=== PATIENT | female | born 1990 | race Caucasian/White ===

== ENCOUNTER 2020-08-01 08:25 | Day surgery (SDC) | payer OTHER ==
[2020-08-01 08:32] LABS: Specific Gravity 1.025 (1.005-1.030)
[2020-08-01] MEDS ORDERED: SCOPOLAMINE HYDROBROMIDE PATCH TD ONE (08:43)
[2020-08-01] MEDS ORDERED: Ringers Lactate 1,000 ML IV ONE ×4 (08:43→14:22)
[2020-08-01] MEDS ORDERED: CEFAZOLIN/SWI 1gm 1 GM/10 ML SYR ONE (08:44)
[2020-08-01] MEDS ORDERED: propofoL 200 MG/20 ML VIAL IV ONE (09:09)
[2020-08-01] MEDS ORDERED: GLYCOPYRROLATE 0.2 MG/ML SYR ONE ×2 (09:11)
[2020-08-01] MEDS ORDERED: MIDAZOLAM HCL 2 MG/2 ML INJ ONE (09:11)
[2020-08-01] MEDS ORDERED: LIDOCAINE 2% MPF 5 ML VIAL ONE (09:11)
[2020-08-01] MEDS ORDERED: ROCURONIUM 50 MG/5 ML VIAL IV ONE ×2 (09:11→10:54)
[2020-08-01] MEDS ORDERED: FENTANYL CITR 250 MCG/5 ML ONE (09:11)
[2020-08-01] MEDS ORDERED: ONDANSETRON 4 MG/2 ML VIAL ONE ×3 (09:12→16:16)
[2020-08-01] MEDS ORDERED: KETOROLAC 30 MG/ML INJ ONE (09:12)
[2020-08-01] MEDS ORDERED: dexAMETHasone 10 MG/ML VIAL ONE (09:12)
[2020-08-01] MEDS ORDERED: LIDOCAINE 1% W/EPI 1:100,000 MDV 20 ML VIAL ONE (09:19)
[2020-08-01] MEDS ORDERED: NS 0.9% VIAL 40 ML ONE (09:19)
[2020-08-01] MEDS ORDERED: GENTAMICIN SULF 80 MG/2ML INJ ONE (09:19)
[2020-08-01] MEDS ORDERED: CEFAZOLIN SODIUM 1 GM/VIAL ONE (09:19)
[2020-08-01] MEDS ORDERED: BACITRACIN 50000 UNIT VIAL ONE (09:19)
[2020-08-01] MEDS ORDERED: Mastisol Adhesive Liq ONE (09:19)
[2020-08-01] MEDS ORDERED: FENTANYL CITR 100 MCG/2 ML ONE (10:54)
[2020-08-01] MEDS ORDERED: OXYMETAZOLINE HCL 0.05% 15ML NAS ONE (11:17)
[2020-08-01] MEDS ORDERED: MORPHINE 10 MG/ML VIAL ONE (13:12)
[2020-08-01] MEDS ORDERED: HYDROMORPHONE HCL 1 MG/ML INJ ONE (14:43)
[2020-08-01 15:21] VITALS: TEMP 98
[2020-08-01 16:14] VITALS: O2SAT 98
[2020-08-01] MEDS ORDERED: CODEINE 30MG/APAP 300MG TAB ONE (16:52)
[2020-08-01 17:22] VITALS: BP 97/55
--- NOTE | 2020-08-01 21:56 | OP ---
Surgeon: Nguyễn Liu MD Preoperative Diagnosis: Breast descent after implants. Postoperative Diagnosis: Breast descent after implants. Procedure Performed: Explantation and lift. Anesthesia: General. Description Of Procedure: After satisfactory induction of general anesthesia, the chest was prepped with DuraPrep, dry sterile drapes applied in the usual manner. A 45 mm template was used on right an d left areolas and then transverse curvilinear incisions were made. The intervening skin was de-epit helialized with dermabrader and EpiCut and a transverse and lateral incision made with electrocautery . Flap was elevated and thinned to 1.5 cm, elevated towards the sternum, clavicle, anterior axillary line. Then, an inferior incision was made to full-thickness skin. Then, the tissue was displaced m edially and the retropectoral dissection was performed with electrocautery. The implants were remove d with 300 cc smooth silicone, nonruptured with no significant capsule and disease. The wound was ir rigated with antibiotic solution and then deep breast tissue formed into a cone. Straps were elevate d at 12 o'clock, 1:30, and 3 o'clock position. The straps were then woven in and out of pectoralis m uscle back to base of cone, back to pectoral muscle, back to base of cone, tied themselves with 2-0 P DS suture. This was done for 12 o'clock, 1:30, and 3 o'clock strap was sewn over the sternum at 3 o' clock position with 2-0 Ethibond. Mirror image was done on the opposite side. The patient was sat u p after wounds were closed with lu and dog ears marked out laterally, and then placed supine wit h dog ears incised and then the wounds were irrigated with antibiotic solution. A 3-0 Monocryl sutur e was used to tack Vinay fascia at the 6 o'clock position on both breast and then the wound was clos ed after 10 COLLINS was brought out of axilla and sewn in place with 2-0 silk, closed with a 3-0 Vicryl navarrete bcu and 3-0 PDS running subcuticular tied from medial to lateral and lateral to medial, and tied in t he vertical midline of the breast. Both breasts were done and then the patient was sat up. Site for new nipple-areolar complex was marked out. The patient returned supine. The tissue was cored out w ith 45 mm template. Nipple areolar complex delivered and sewn with interrupted 4-0 PDS followed by 4 -0 PDS running subcuticular. Dressings consisted of tincture of benzoin, Steri-Strips, 5 x 5s, fluff s, and Dominick wrap. The patient tolerated the procedure well and returned to Recovery. NANI/YOVANI Voice ID: [id number] Report ID: [id number]
== END 2020-08-01 17:45 | disposition home or self-care (01) ==
LOC: OR 08:25
PROVIDERS: ATTEND Specialist
PROC: 0HPU0JZ Removal of Synthetic Substitute from Left Breast, Open Approach (ICD-10-PCS; 2020-08-01)
PROC: 0HPT0JZ Removal of Synthetic Substitute from Right Breast, Open Approach (ICD-10-PCS; 2020-08-01)
PROC: 0HSV0ZZ Reposition Bilateral Breast, Open Approach (ICD-10-PCS; principal; 2020-08-01 09:00)
DX: N64.81 Ptosis of breast (principal); Z45.812 Encounter for adjustment or removal of left breast implant; Z45.811 Encounter for adjustment or removal of right breast implant
CPT/HCPCS: 19316; 19371; 81025; 88305; J2704; J1580; J2250; J3010 ×2; J1100; J1170; J0690 ×2; J7120 ×4; J2405 ×3